=== PATIENT | male | born 1965 | race Caucasian/White ===

== ENCOUNTER → 2020-08-24 | Outpatient (CLI) | payer BC | END | disposition home or self-care (01) | LOC: LABPAT 15:44 | PROVIDERS: ATTEND Surgery | DX: K43.9 Ventral hernia without obstruction or gangrene (principal) | CPT/HCPCS: 86900; 86901; 86850; 93005; U0003; U0005 ==

== ENCOUNTER 2020-09-01 06:55 | Day surgery (SDC) | payer BC ==
[2020-08-27 15:34] VITALS: BMI 39.4
[~2020-09-01 06:55] MED LIST: DEXAMETHASONE SOD PHOSPHATE 4 MG/ML 1 ML VIAL IV ONE; LACTATED RINGERS 1,000 ML IV SCH; LIDOCAINE 1% (10MG/ML) FOR IV START INTRADERMA PRN; MIDAZOLAM 2 MG/2 ML VIAL IV PRN; ONDANSETRON 4 MG/2 ML VIAL IVP ONE; ceFAZolin 3 GM in SODIUM CHLORIDE 0.9% 100 ML IVPB PRN
[2020-09-01] MEDS ORDERED: NEOSTIGMINE 1 MG/ML 10 ML VIAL ONE (07:34)
[2020-09-01] MEDS ORDERED: DEXAMETHASONE SOD PHOSPHATE 4 MG/ML 1 ML VIAL ONE (07:34)
[2020-09-01] MEDS ORDERED: LIDOCAINE 1% INJ 10MG/ML (20 ML MDV) ONE (07:34)
[2020-09-01] MEDS ORDERED: ROCURONIUM 10 MG/ML (5 ML VIAL) IV ONE (07:34)
[2020-09-01] MEDS ORDERED: PHENYLEPHRINE-0.9% NACL SYG 1,000 MCG/10 ML SYRINGE ONE (07:34)
[2020-09-01] MEDS ORDERED: MIDAZOLAM 2 MG/2 ML VIAL ONE (07:34)
[2020-09-01] MEDS ORDERED: GLYCOPYRROLATE 0.2 MG/ML 2 ML VIAL ONE (07:34)
[2020-09-01] MEDS ORDERED: HYDROmorphone (PF) 1 MG/ML ONE (07:34)
[2020-09-01] MEDS ORDERED: PROPOFOL 10 MG/ML 20 ML VIAL IV ONE (07:34)
[2020-09-01] MEDS ORDERED: fentaNYL (PF) 50 MCG/ML 2 ML AMP ONE (07:34)
[2020-09-01] MEDS ORDERED: ROPIVACAINE 5 MG/ML 30 ML VIAL ONE (07:34)
[2020-09-01] MEDS ORDERED: SUCCINYLCHOLINE CHLORIDE VIAL 200 MG/10 ML VIAL IV ONE (07:34)
[2020-09-01] MEDS ORDERED: ePHEDrine SULFATE/0.9% NACL/PF 50 MG/5 ML SYRINGE IV ONE (07:34)
[2020-09-01] MEDS ORDERED: MIDAZOLAM 2 MG/2 ML VIAL IVP ONE (08:08)
[2020-09-01] MEDS ORDERED: fentaNYL (PF) 50 MCG/ML 2 ML AMP IVP ONE (08:08)
[2020-09-01 08:09] LABS: Anisocytosis Slight; Basophils % (A) 0 %; Eosinophils # (A) 0.2 k/uL (0-0.7); Eosinophils % (A) 4 %; HCT 36.1 % (39.0-53.0); HGB 11.9 gm/dL (13.0-17.5); Lymphocytes # (A) 1.9 k/uL (1.0-4.8); Lymphocytes % (A) 43 %; MCH 25.9 pg (25.0-35.0); MCV 78.3 fL (80.0-100.0); Microcytosis Slight; Monocytes # (A) 0.4 k/uL (0-1.0); Monocytes % (A) 10 %; Neutrophils # (A) 1.7 k/uL (1.3-7.7); Neutrophils % (A) 39 %; Platelet Count 202 k/uL (150-450); RBC 4.61 m/uL (4.30-5.90); RDW 16.1 % (11.5-15.5); WBC 4.3 k/uL (3.8-10.6)
[2020-09-01] MEDS ORDERED: HEPARIN SODIUM,PORCINE 5,000 UNIT/ML 1 ML VIAL ONE (08:29)
[2020-09-01] MEDS ORDERED: HEPARIN SODIUM,PORCINE 5,000 UNIT/ML 1 ML VIAL SQ ONE (08:34)
[2020-09-01] MEDS ORDERED: LIDOCAINE 1%-EPI 1:100,000 20 ML VIAL SQ ONE ×2 (08:57)
[2020-09-01] MEDS ORDERED: LACTATED RINGERS 1,000 ML IV ONE (09:22)
[2020-09-01 11:33] VITALS: TEMP 97.8
--- NOTE | 2020-09-01 11:39 | P.OP ---
Date of Procedure: 09/01/20 Preoperative Diagnosis: Incisional hernia Postoperative Diagnosis: Incisional hernia Significant amount of intra-abdominal adhesions Procedure(s) Performed: Robotic incisional hernia repair with mesh placement Robotic extensive lysis of adhesions Anesthesia: MARY ANN Surgeon: Les Rice Pathology: none sent Condition: stable Disposition: same day Indications for Procedure: 55-year-old male presented to the surgery clinic with complaints of abdominal discomfort. He was discovered to have an incisional hernia and workup was performed including CT of the abdomen and pelvis. After discussion with the patient, he has opted for surgical repair. He was explained risks, benefits and alternatives to the procedure. He is noted to have a previous laparotomy secondary to a gastric bypass procedure and he is aware of the risk of significant amount of intra-abdominal adhesions. He is aware of the risks of lysis of adhesions, including injury to bowel and bleeding. Patient was explained all risks, benefits and alternatives to the procedure did provide consent prior to attending the operating suite. Operative Findings: Extensive amount of intra-abdominal adhesions including small bowel and omentum and mesentery Incisional hernia measuring approximately 4 x 4 cm Description of Procedure: The patient was brought into the operating suite and placed in supine position on the operating table. Sedation was provided by anesthesia and the patient underwent endotracheal intubation. The patient had his right arm tucked against the body and a footboard was applied. Patient was prepped and draped in regular sterile fashion. A timeout was performed to verify correct patient and correct procedure. Patient was confirmed to receive perioperative IV antibiotics, bilateral SCDs and 5000 units of subcutaneous heparin for DVT prophylaxis. A 5 mm skin incision was made along the left midaxillary line at [place] point and the abdomen was entered under direct visualization using a Visiport. Pneumoperitoneum was achieved. It was immediately apparent that the patient had a significant amount of intra-abdominal adhesions. The adhesions included omentum, small bowel and mesentery. 28 mm robotic trochars were then placed. These were placed under direct visualization in the left lower quadrant and right lower quadrant. Using these 3 ports sites lysis of adhesion was begun laparoscopically using sharp dissection. Once some adhesions were taken down creating enough room for the 12 mm port site, the port was placed and an infraumbilical location. The robot was then docked. Extensive lysis of adhesions was performed dissecting the mesentery, omentum and small bowel from the abdominal wall. This was done with both sharp and blunt dissection. Lysis of adhesions took approximately one hour. Once adhesions were taken down, the incisional hernia was apparent. It measured approximately 4 x 4 centimeters in size and was noted to be an incisional hernia with [place] cheeselike finding. Attempt was made to close the defect using a oh Stretta fix suture, however due to the multiple defects within the greater defect, the suture was unable to hold. At this point, it was decided to complete the procedure in IPOM technique. A 15 cm Ventralight Echo system mesh was introduced into the abdomen. A Red LaGoon device was used to grasp the stay suture on the mesh and elevated against the abdominal wall covering the entire hernia defect. The mesh was then secured in place using multiple 20V lock sutures. It was noted to sit without any folds or kinks against the abdominal wall. The robot was then undocked. Lap scopic 30 camera was reinserted. All trocar sites were examined. No evidence of bleeding. The 12 mm trocar site was closed using 2 transfacial sutures of 0 Vicryl which were placed using a Dino Graf device. The pneumoperitoneum was evacuated all the skin incisions were closed using 4-0 Vicryl by Dermabond skin glue. The sponge, instrument and needle count were correct 2. Abdominal binder was applied. The patient was x-rayed and taken to postanesthesia care unit in stable condition.
[2020-09-01] MEDS: HYDROmorphone 0.5 MG/0.5 ML SYRINGE IVP PRN ×2 (11:58→12:04)
[2020-09-01] MEDS ORDERED: SODIUM CHLORIDE 0.9% 1,000 ML IV ONE (12:34)
--- NOTE | 2020-09-01 13:00 | P.ANPRN ---
Procedure Note - Anesthesia - Nerve Block Performed Bilateral Rectus Abdominis Time Out Performed: Yes (08:) Date of Procedure: 09/01/20 Procedure Start Time: Procedure Stop Time: Location of Patient: PreOp Indication: Acute Post-Operative Pain, Requested by Surgeon (Dr Rice) Sedation Type: Sedate with meaningful contact maintained Preparation: Sterile Prep Position: Supine Catheter: None Needle Types: Pajunk Needle Gauge: 21 Ultrasound used to visualize needle placement: Yes Ultrasound used to observe medication spread: Yes Injectate: 0.5% Ropivacaine (see comment for volume) (15cc each side. Decadron 2mg each side) Blood Aspirated: No Pain Paresthesia on Injection Noted: No Resistance on Injection: Normal Image Stored and Saved: Yes Events: Uneventful and Well Tolerated
[2020-09-01] MEDS ORDERED: KETOROLAC 15 MG/ML 1 ML VIAL ONE (13:26)
[2020-09-01] MEDS ORDERED: KETOROLAC 15 MG/ML 1 ML VIAL IVP ONE (13:29)
[2020-09-01] MEDS ORDERED: HYDROcodone/APAP 5-325MG 1 EACH TAB ONE (14:25)
[2020-09-01] MEDS ORDERED: HYDROcodone/APAP 5-325MG 1 EACH TAB PO ONE (14:26)
[2020-09-01 14:31] VITALS: RESP 16
[2020-09-01 14:57] VITALS: BP 122/63; PULSE 82
== END 2020-09-01 15:26 | disposition home or self-care (01) ==
LOC: OR 06:55
PROVIDERS: ATTEND Surgery
DX: K43.2 Incisional hernia without obstruction or gangrene (principal); K66.0 Peritoneal adhesions (postprocedural) (postinfection); I10 Essential (primary) hypertension; Z98.84 Bariatric surgery status; G89.29 Other chronic pain; M25.552 Pain in left hip; Z82.5 Family history of asthma and other chronic lower respiratory diseases; Z83.3 Family history of diabetes mellitus; Z82.49 Family history of ischemic heart disease and other diseases of the circulatory system; Z79.899 Other long term (current) drug therapy; Z91.040 Latex allergy status
CPT/HCPCS: 49654; S2900; 64488; 85025; 86850; 86900; 86901